=== PATIENT | male | born 1980 | race Two or more races ===

== ENCOUNTER → 2017-05-29 | Outpatient (CLI) | payer OTHER ==
[~2017-05-29] MED LIST: PROTONIX20 MG
== END | disposition home or self-care (01) ==
LOC: PPHC 09:21
DX: R10.13 Epigastric pain (principal)

== ENCOUNTER 2018-04-22 12:03 | Emergency (ER) | payer OTHER ==
[~2018-04-22] VITALS: Ht 182.9 cm; Wt 90.3 kg
[2018-04-22] MEDS ORDERED: CLEOCIN HCL300 MG (12:25)
== END 2018-04-22 13:47 | disposition home or self-care (01) ==
LOC: ER 12:03
DX: R21 Rash and other nonspecific skin eruption (principal)

== ENCOUNTER 2023-09-05 09:43 | Emergency (ER) | payer OTHER ==
[~2023-09-05] VITALS: Ht 180.3 cm; Wt 85.3 kg
[~2023-09-05 09:43] MED LIST changes: +CLEOCIN HCL300 MG
== END 2023-09-05 13:15 | disposition home or self-care (01) ==
LOC: ER 09:44
DX: S89.82XA Other specified injuries of left lower leg, initial encounter (principal); X58.XXXA Exposure to other specified factors, initial encounter; Y93.68 Activity, volleyball (beach) (court); Y92.89 Other specified places as the place of occurrence of the external cause; Y99.9 Unspecified external cause status; Z88.0 Allergy status to penicillin; Z88.8 Allergy status to other drugs, medicaments and biological substances